=== PATIENT | male | born 1990 | race Caucasian/White ===

== ENCOUNTER 2024-01-13 03:18 | Emergency (ER) | payer MEDICAID, OTHER ==
[~2024-01-13] VITALS: Ht 167.6 cm; Wt 77.1 kg
[2024-01-13 03:41] VITALS: BP 139/81; TEMP 100.3; O2SAT 98
[2024-01-13] MEDS ORDERED: CEFTRIAXONE 1GM BAG (ER ONLY) 50 ML IV ONE (04:05)
[2024-01-13] MEDS: CEFTRIAXONE 1 G in IV D5W 50 ML IV ONE (04:18)
[2024-01-13 04:29] LABS: BASOPHILS % (AUTO) 0.4 % (0.0-2.0); EOSINOPHILS # (AUTO) 0.1 K/uL (0.0-0.7); EOSINOPHILS % (AUTO) 0.6 % (0.0-6.0); HEMATOCRIT 42 % (39-51); HEMOGLOBIN 14.4 g/dL (13.5-17.5); LYMPHOCYTES # (AUTO) 1.9 K/uL (0.8-4.8); LYMPHOCYTES % (AUTO) 16.2 % (20.0-44.0); MEAN CORPUSCULAR HEMOGLOBIN 29 PG (26.0-33.0); MEAN CORPUSCULAR HGB CONC 34 g/dl (31.0-36.0); MEAN CORPUSCULAR VOLUME 84 fL (80-96); MONOCYTES # (AUTO) 1.1 K/uL (0.1-1.30); MONOCYTES % (AUTO) 9.5 % (2.0-12.0); NEUTROPHILS # (AUTO) 8.6 K/uL (1.8-8.9); NEUTROPHILS % (AUTO) 73.3 % (43.0-81.0); PLATELET COUNT (AUTO) 233 K/uL (150-450); RED CELL DISTRIBUTION WIDTH 12.8 % (11.5-15.0); WHITE BLOOD COUNT (AUTO) 11.8 K/uL (4.3-11.0)
[2024-01-13 04:37] LABS: CALCIUM, SERUM 9.4 mg/dL (8.5-10.1); POTASSIUM 3.4 mmol/L (3.5-5.1)
[2024-01-13 04:43] LABS: ALBUMIN 3.6 g/dL (3.4-5.0); BILIRUBIN,TOTAL 1.2 mg/dL (0.2-1.0); TOTAL PROTEIN, SERUM 8.5 g/dL (6.4-8.2)
[2024-01-13] MEDS ORDERED: POTASSIUM CHLORIDE 10 MEQ TABLET.SA ONE (04:51)
[2024-01-13] MEDS ORDERED: POTASSIUM CHLORIDE 20 MEQ POWDER PACKET ONE (04:58)
[2024-01-13] MEDS: POTASSIUM CHLORIDE 10 MEQ TABLET.SA PO ONE (05:03)
[2024-01-13] MEDS ORDERED: AZIT250T PO (05:08)
[2024-01-13] MEDS ORDERED: PRED50TA PO (05:08)
[2024-01-13 05:11] LABS: MONOTEST NEGATIVE (NEGATIVE)
[2024-01-13 05:21] LABS: LACTIC ACID 1.1 mmol/L (0.4-2.0)
== END 2024-01-13 05:17 | disposition home or self-care (01) ==
LOC: ER 03:35
DX: J03.90 Acute tonsillitis, unspecified (principal)
CPT/HCPCS: 99284; 96365; 85025; 87040; 83605; 86308; 36415; 87880; 80053; 87070; J0696 ×2; J7060; 86403-TC

== ENCOUNTER 2024-06-16 14:43 | Emergency (ER) | payer MEDICAID ==
[~2024-06-16] VITALS: Ht 167.6 cm; Wt 83.0 kg
[~2024-06-16 14:43] MED LIST: AZIT250T PO; PRED50TA PO
[2024-06-16 15:31] VITALS: TEMP 99.2
[2024-06-16] MEDS ORDERED: BENZONATATE 100 MG CAPSULE PO ONE (15:53)
[2024-06-16] MEDS ORDERED: KETOROLAC TROMETHAMINE 15 MG/ML VIAL ONE (15:53)
[2024-06-16] MEDS: IV NS 0.9% 1,000 ML IV ONE (15:55)
[2024-06-16] MEDS: KETOROLAC TROMETHAMINE 15 MG/ML VIAL IV ONE (15:58)
[2024-06-16] MEDS: BENZONATATE 100 MG CAPSULE PO PRN (15:59)
[2024-06-16] MEDS ORDERED: BENZ-13 PO (17:01)
[2024-06-16] MEDS ORDERED: PSEU120T99 PO (17:01)
[2024-06-16 17:27] VITALS: BP 135/80; O2SAT 97
== END 2024-06-16 17:28 | disposition home or self-care (01) ==
LOC: ER 15:15
DX: J06.9 Acute upper respiratory infection, unspecified (principal); Z79.52 Long term (current) use of systemic steroids; Z20.822 Contact with and (suspected) exposure to COVID-19
CPT/HCPCS: 99284; 96374; 71045; 96361; 87426; 87804 ×2; 87070; 87880; J7030; J1885; 86403-TC